=== PATIENT | male | born 1955 | race Caucasian/White ===

== ENCOUNTER 2024-10-24 00:49 | Emergency (ER) | payer OTHER, SELFPAY ==
--- NOTE | ~2024-10-24 | CT_ITS ---
CLINICAL HISTORY: Left lower quadrant pain CT ABDOMEN AND PELVIS WITH CONTRAST COMPARISON: None. FINDINGS: Images of the lung bases demonstrate bibasilar atelectasis. A nodule in the anterior aspect of the right middle lobe measures 3-4 mm on axial image 46. A tiny calcified granuloma is noted in the right lower lobe. Fatty liver is noted. Subcentimeter low-attenuation lesion in the right hepatic lobe is too small to characterize. Gallbladder is unremarkable. No visible stone. Surgical clips are noted adjacent to the stomach. Stomach is significantly underdistended which precludes accurate assessment. No CT evidence of acute pancreatitis. Spleen is unremarkable. Thickening of the adrenal glands is noted. Mild nonspecific perinephric stranding and trace fluid are noted. No renal calculi or hydronephrosis bilaterally. No calculi in the ureters and urinary bladder. Urinary bladder is mildly thick-walled. Enlarged prostate gland is noted, estimated to measure approximately 6 cm in craniocaudal dimension on sagittal image 76. Prostate gland indents upon the inferior aspect of the urinary bladder. Abdominal aorta is normal in caliber, without evidence of an aneurysm or dissection. No evidence of a bowel obstruction or free air. Portions of the colon are underdistended which limits assessment. Colonic diverticula are noted, without evidence of acute diverticulitis. Appendix is visualized and there is no definite evidence of acute appendicitis. No lymphadenopathy. Tiny amount of fluid is noted adjacent to the superior portions of the bilateral inguinal canals as seen on axial image 640. This might be related to postoperative changes. Bone windows demonstrate levocurvature and multilevel degenerative changes within the lumbar spine. Multilevel degenerative changes are noted within the visualized thoracic spine. Moderate degenerative changes are noted within the bilateral hips. IMPRESSION: 1. Bibasilar atelectasis. A 3-4 mm nodule is noted in the right middle lobe. This can be followed up according to the revised Fleischner criteria. 2. No hydronephrosis or obstructing stone. 3. Enlarged prostate gland. 4. Mildly thick-walled urinary bladder. This might be due to muscle hypertrophy/chronic bladder outlet obstruction. This can be correlated with urinalysis. 5. No evidence of a bowel obstruction or free air. No pericolonic inflammation. No definite evidence of appendicitis. 6. Colonic diverticula without evidence of acute diverticulitis. 7. Additional findings are detailed above. This document has been electronically signed by: Hugo Malloy M.D. on 10/24/2024 05:08:19
[2024-10-24 01:03] VITALS: BP 167/104; PULSE 97; RESP 18; TEMP 36.7; O2SAT 98; BMI 32.8
[2024-10-24 01:16] LABS: MANUAL DIFF FLAG NO
--- NOTE | 2024-10-24 01:16 | MHC.EDTECH ---
labs done upon arrival to triage, pt unable to give urine sample at this time.
[2024-10-24 01:20] LABS: Basophils Absolute Auto 0.1 X10*3/uL (0.0-0.2); Basophils Percent Auto 0.3 % (0-2); Eosinophils Absolute Auto 0.1 X10*3/uL (0.0-0.4); Eosinophils Percent Auto 0.4 % (0-4); Hematocrit 41.9 % (42.0-52.0); Hemoglobin 14.5 g/dl (14.0-18.0); Imm Gran Abs Auto 0.13 X10*3/uL (0.00-0.03); Imm Gran Pct Auto 0.8 % (0.0-0.4); Lymphocytes Absolute Auto 1.3 X10*3/uL (1.2-4.9); Lymphocytes Percent Auto 7.7 % (20-40); Mean Corpuscular HGB Conc 34.6 g/dl (31.0-36.0); Mean Corpuscular Volume 89.7 fL (80.0-98.0); Mean Platelet Volume 9.6 fL (9.4-12.4); Monocytes Absolute Auto 1.3 X10*3/uL (0.1-1.2); Monocytes Percent Auto 7.6 % (2-11); Neutrophils Absolute Auto 14.1 x10*3/uL (2.0-8.3); Neutrophils Percent Auto 83.2 % (45-73); Platelet Count 275 X10*3/uL (160-400); Red Blood Count 4.67 X10*6/uL (4.60-5.80); Red Cell Distribution Width 13.7 % (11.0-16.0); White Blood Count 16.9 X10*3/uL (4.8-10.8)
[2024-10-24 01:38] LABS: Alanine Aminotransferase 9 U/L (0-40); Albumin Level 4.1 g/dL (3.5-5.0); Alkaline Phosphatase 51 U/L (39-117); Anion Gap 16 (12-20); Aspartate Amino Transferase 18 U/L (5-37); Bilirubin Total 0.7 mg/dL (0.0-1.0); Blood Urea Nitrogen 12 mg/dL (9-16); Calcium 9.3 mg/dL (8.4-10.2); Carbon Dioxide 23 mmol/L (22-29); Chloride 102 mmol/L (96-108); Creatinine Clr Calc Pharmacy 105.6; Estimated Glomerular Filt Rate > 60; Glucose Random 101 mg/dL (60-115); Sodium 137 mmol/L (135-145)
--- NOTE | 2024-10-24 03:06 | ED.ABDPAIN ---
HPI - Abdominal Pain General Chief Complaint: Urogenital-Male Stated Complaint: Uro-genital Male, abd pain Time Seen by Provider: 10/24/24 03:00 Source: patient Mode of arrival: ambulatory Limitations: no limitations History of Present Illness ED Provider: HPI narrative: Patient no significant past medical history does have history of chronic back pain use oxycodone been constipated and feeling urinary urgency, frequency, dysuria for last few days also with chills and low-grade fever and lower abdominal discomfort slight nausea no vomiting last bowel movement was yesterday no blood in his stool no history of diverticulitis Related Data Previous Rx's ?Medication ?Instructions ?Recorded cefuroxime axetil 500 mg tablet 500 mg PO BID 10 days #20 tabs 10/24/24 phenazopyridine 200 mg tablet 200 mg PO TID 2 days #6 tabs 10/24/24 (Pyridium) Allergies Allergy/AdvReac Type Severity Reaction Status Date / Time aspirin [ASA] Allergy Unknown UNKNOWN Verified 10/24/24 01:05 NSAIDS (Non-Steroidal Allergy Unknown UNKNOWN Verified 10/24/24 01:05 Anti-Inflamma [NSAIDS (NON-STEROIDAL ANTI-INFLAMMA] Review of Systems Review of Systems Yes all other systems are reviewed and are negative [facility] Social History Social History Alcohol intake: current Alcohol intake frequency: holidays/special occasions only Smoked in Last 30 Days: No Use of substances other than those prescribed or required for medical reasons: Yes Substance Use Type: Marijuana Advance Directives: No Advance Directives Information Provided: Yes Do you have a plan to hurt others: No Plan Physical Exam ED Vital Signs: Vital Signs - 24 hr 10/24/24 01:03 10/24/24 03:31 10/24/24 05:45 Temperature 98.1 F 98.4 F 98.6 F Pulse Rate 97 90 97 Respiratory Rate 18 18 18 Blood Pressure 167/104 H 174/97 H 136/83 Pulse Oximetry 98 94 95 Oxygen Delivery Method Room Air Room Air Room Air BMI result Body Mass Index 32.8 Appearance: Alert. Oriented X3. No acute distress. Eyes: PERRLA, No Nystagmus ENT: Pharynx normal. Oral Mucosa moist Neck: Normal inspection. Neck supple. CVS: Normal heart rate and rhythm. Pulses normal. Respiratory: No respiratory distress. Equal air entry bilateral, no wheezing/rales/rhonchi Abdomen: Soft and deep tenderness left lower quadrant. Bowel sounds are present, no mass palpable, no CVA tenderness Skin: Skin warm and dry. Normal skin color. Normal skin turgor. Extremities: No lower extremity edema. No calf tenderness Neuro: Oriented X 3. No motor deficit. No sensory deficit.No cerebellar signs , cranial nerves II-XII intact Medical Decision Making Medical Decision Making [facility] Narrative: Patient with urinary symptoms with positive for UTI CT scan negative for diverticulitis patient has received IV antibiotics discharge patient home on antibiotics Differential Diagnosis Differential Diagnoses: The differential diagnosis associated with the presentation includes Diverticulitis/diverticulosis/UTI/kidney stone Lab Data [facility] Lab Attestation statement: I reviewed the patient's lab results. 10/24/24 01:12 10/24/24 01:12 Labs: Lab Results 10/24/24 10/24/24 10/24/24 Range/Units 01:12 03:29 03:42 WBC 16.9 H (4.8-10.8) X10*3/uL RBC 4.67 (4.60-5.80) X10*6/uL Hgb 14.5 (14.0-18.0) g/dl Hct 41.9 L (42.0-52.0) % MCV 89.7 (80.0-98.0) fL MCH 31.0 (27.0-33.0) pg MCHC 34.6 (31.0-36.0) g/dl RDW 13.7 (11.0-16.0) % Plt Count 275 (160-400) X10*3/uL MPV 9.6 (9.4-12.4) fL Immature Gran % (Auto) 0.8 H (0.0-0.4) % Neut % (Auto) 83.2 H (45-73) % Lymph % (Auto) 7.7 L (20-40) % [place] % (Auto) 7.6 (2-11) % Eos % (Auto) 0.4 (0-4) % Baso % (Auto) 0.3 (0-2) % Lymph # (Auto) 1.3 (1.2-4.9) X10*3/uL [place] # (Auto) 1.3 H (0.1-1.2) X10*3/uL Eos # (Auto) 0.1 (0.0-0.4) X10*3/uL Baso # (Auto) 0.1 (0.0-0.2) X10*3/uL Abs Immat Gran (auto) 0.13 H (0.00-0.03) X10*3/uL Absolute Neuts (auto) 14.1 H (2.0-8.3) x10*3/uL Absolute Nucleated RBC 0.000 (0.0-0.012) X10*3/uL Nucleated RBC % (auto) 0.0 (0.0-0.2) /100WBC Sodium 137 (135-145) mmol/L Potassium 4.0 (3.3-5.1) mmol/L Chloride 102 (96-108) mmol/L Carbon Dioxide 23 (22-29) mmol/L Anion Gap 16 (12-20) BUN 12 (9-16) mg/dL Creatinine 0.82 (0.5-1.4) mg/dL Estim Creat Clear Calc 105.6 Estimated GFR > 60 Random Glucose 101 (60-115) mg/dL Lactic Acid 1.1 (0.5-2.0) mmol/L Calcium 9.3 (8.4-10.2) mg/dL Total Bilirubin 0.7 (0.0-1.0) mg/dL AST 18 (5-37) U/L ALT 9 (0-40) U/L Alkaline Phosphatase 51 (39-117) U/L Total Protein 7.0 (6.5-8.0) g/dL Albumin 4.1 (3.5-5.0) g/dL Lipase 42 (8-78) U/L Urine Color [place] Urine Appearance Hazy Urine pH 7.0 (5.0-9.0) Ur Specific [place] 1.015 (1.005-1.025) Urine Protein 30 (1+) H (Neg-Trace) mg/dL Urine Glucose (UA) 100 H (Negative) mg/dL Urine Ketones 40 (Negative) mg/dL Urine Blood Trace (Negative) Urine Nitrite Positive H (Negative) Ur Leukocyte Esterase Moderate (2+) H (Negative) Urine RBC 3-5 H (0-2) /HPF Urine WBC >50 H (0-5) /HPF Ur Squamous Epith Cells 0-2 (0-2) /HPF Urine Bacteria 4+ (None Seen) Hyaline Casts 0-2 (0-2) /LPF Medications Administered Discontinued Medications Generic Name Dose Route Start Last Admin Trade Name Chrisq PRN Reason Stop Dose Admin Sodium Chloride 1,000 mls @ 999 mls/hr 10/24/24 03:06 10/24/24 05:14 Ns IV 10/24/24 04:06 Infused .Q1H1M ONE Infusion Piperacillin Sod/Tazobactam 50 mls @ 100 mls/hr 10/24/24 03:49 10/24/24 04:30 Sod 3.375 gm/ Sodium Chloride IV 10/24/24 04:18 Infused ONCE ONE Infusion Iohexol 85 ml 10/24/24 03:57 10/24/24 03:57 Iohexol 350 Mg/Ml 100 Ml Infus..Btl IV 10/24/24 03:58 85 ml ONCE ONE Administration Morphine Sulfate 4 mg 10/24/24 03:07 10/24/24 03:23 Morphine Sulfate 4 Mg/Ml Cartridge IVPUSH 10/24/24 03:08 4 mg ONCE ONE Administration Protocol Ondansetron HCl 4 mg 10/24/24 03:07 10/24/24 03:23 Ondansetron Hcl 4 Mg/2 Ml Vial IVPUSH 10/24/24 03:08 4 mg ONCE ONE Administration Discharge Plan Discharge Clinical Impression: Urinary tract infection Patient Disposition: Home, Self-Care Instructions: Urinary Tract Infection in Men (DC) Additional Instructions: Drink plenty of fluids Take antibiotic as prescribed Follow up with your PCP if not better Report to the ED if increased pain/vomiting/fever Prescriptions: New cefuroxime axetil 500 mg tablet 500 mg PO BID 10 Days Qty: 20 0RF phenazopyridine [Pyridium] 200 mg tablet 200 mg PO TID 2 Days Qty: 6 0RF Print Language: Slovak
[2024-10-24 03:16] LABS: Lipase 42 U/L (8-78)
[2024-10-24] MEDS: 0.9 % Sodium Chloride 1,000 ML 999 ML IV (03:20)
[2024-10-24] MEDS: ondansetron HCL 4 MG/2 ML VIAL IVPUSH (03:23)
[2024-10-24] MEDS: Morphine Sulfate 4 MG/ML CARTRIDGE IVPUSH (03:23)
[2024-10-24 03:31] VITALS: BP 174/97; PULSE 90; RESP 18; TEMP 36.9; O2SAT 94
[2024-10-24 03:40] LABS: Appearance Urine Hazy; Color Urine Orange; Glucose Urine UA 100 mg/dL (Negative); Leukocyte Esterase Urine Moderate (2+) (Negative); Nitrite Urine Positive (Negative); Specific Gravity - Urine 1.015 (1.005-1.025); UMIC TRIGGER UACC YES; Urine Blood Trace (Negative); Urine Ketones 40 mg/dL (Negative); Urine Protein 30 (1+) mg/dL (Neg-Trace)
[2024-10-24 03:46] LABS: Bacteria Urine 4+ (None Seen); Hyaline Casts Urine 0-2 /LPF (0-2); Squamous Epithelial Cell Urine 0-2 /HPF (0-2); UACC Culture Trigger YES; WBC Urine >50 /HPF (0-5)
[2024-10-24] MEDS: Piperacillin Sodium/Tazobactam 3.375 GM in 0.9 % Sodium Chloride 50 ML IV (03:57)
[2024-10-24] MEDS: iohexoL 350 MG/ML 100 ML INFUS..BTL 85 ML IV (03:57)
[2024-10-24 04:03] LABS: Lactic Acid 1.1 mmol/L (0.5-2.0)
[2024-10-24 05:45] VITALS: BP 136/83; PULSE 97; RESP 18; TEMP 37; O2SAT 95
[2024-10-24 06:04] VITALS: BP 136/83; PULSE 97; RESP 18; TEMP 37; O2SAT 95
== END 2024-10-24 06:23 | disposition home or self-care (01) ==
PROVIDERS: Emergency Provider Internal Medicine; PCP Nurse Practitioner Adult Health
DX: N39.0 Urinary tract infection, site not specified (principal); R10.2 Pelvic and perineal pain; R11.0 Nausea; M54.50 Low back pain, unspecified; R39.15 Urgency of urination; Z79.899 Other long term (current) drug therapy
CPT/HCPCS: 36415; 74177; 80053; 81001; 83605; 83690; 85025; 87040; 87086; 87088; 87186; 96361; 96374; 96375; 99284; J2270; J2405; J2543; Q9967

== ENCOUNTER → 2024-10-24 03:07 | Outpatient (BNV) | payer MEDICAID, SELFPAY | PROVIDERS: Emergency Provider Internal Medicine; PCP Nurse Practitioner Adult Health; Visit Provider Radiology Diagnostic Radiology | DX: K57.30 Diverticulosis of large intestine without perforation or abscess without bleeding (principal); N40.0 Benign prostatic hyperplasia without lower urinary tract symptoms; J98.11 Atelectasis; R91.1 Solitary pulmonary nodule | CPT/HCPCS: 74177 ==